=== PATIENT | female | born 1950 | race Caucasian/White ===

== ENCOUNTER 2018-04-08 09:43 | Emergency (ER) | payer SELFPAY ==
[2018-04-08] MEDS ORDERED: Sodium Chloride 0.9% 500 ML IV STA (10:27)
[2018-04-08 10:29] VITALS: PULSE 70
[2018-04-08 10:59] LABS: BASO % 0.7 % (0.0-2.0); EOS # 0.3 K/uL (0.0-0.7); EOS % 4.6 % (0.0-4.0); HEMOGLOBIN 12.7 g/dL (12.0-16.0); LYMPH # 1.4 K/uL (1.0-4.3); LYMPH % 23.8 % (20.0-40.0); MEAN CELL VOLUME 93.3 fl (81.0-99.0); MEAN CORPUSCULAR HEMOGLOBIN 32.5 pg (27.0-31.0); MEAN CORPUSCULAR HGB CONC 34.8 g/dL (33.0-37.0); MEAN PLATELET VOLUME 7.8 fl (7.2-11.7); MONO # 0.5 K/uL (0.0-0.8); MONO % 8.7 % (0.0-10.0); NEUT # 3.6 K/uL (1.8-7.0); NEUT % 62.2 % (50.0-75.0); NRBC % 0.1 % (0.0-0.0); RBC 3.92 Mil/uL (3.80-5.20); RED CELL DISTRIBUTION WIDTH 12.8 % (11.5-14.5); WHITE BLOOD COUNT 5.8 K/uL (4.8-10.8)
--- NOTE | 2018-04-08 11:00 | RAD ---
Date of service: 04/08/2018 HISTORY: dyspnea COMPARISON: No prior. FINDINGS: LUNGS: No active pulmonary disease. PLEURA: No significant pleural effusion identified, no pneumothorax apparent. CARDIOVASCULAR: Normal. OSSEOUS STRUCTURES: Degenerative changes. VISUALIZED UPPER ABDOMEN: Normal. OTHER FINDINGS: None. IMPRESSION: No active disease.
[2018-04-08 11:04] LABS: PROTHROMBIN TIME 10.8 Seconds (9.8-13.1)
[2018-04-08 11:07] LABS: PARTIAL THROMBOPLASTIN TIME 26.9 Seconds (25.6-37.1)
[2018-04-08 11:13] LABS: ALB/GLOB RATIO 1.2 (1.0-2.1); ALBUMIN 4.2 g/dL (3.5-5.0); ALT/SGPT 24 U/L (9-52); AST/SGOT 28 U/L (14-36); BLOOD UREA NITROGEN 12 mg/dl (7-17); CALCIUM 9.5 mg/dL (8.4-10.2); GFR NON-AFRICAN AMERICAN > 60
--- NOTE | 2018-04-08 11:21 | ED PDOC ---
HPI: Chest Pain Time Seen by Provider: 04/08/18 09:56 Chief Complaint (Nursing): Chest Pain Chief Complaint (Provider): Chest pain History Per: Patient History/Exam Limitations: no limitations Onset/Duration Of Symptoms: Days (x5), Intermittent Episodes Additional Complaint(s): Arleen Garcia is a 67 year old female, with a past medical history of cardiac arrhythmia, HTN and hypothyroidism, who presents to the emergency department for evaluation of a left sided nonradiating chest pain onset for x5 days. Patient reports an intermittent chest pain with exertion and associated with shortness o f breath. She is also complaining of a headache but denies any fever, chills, leg swelling, vision changes, numbness or tingling, weakness, nausea, vomit, diarrhea, abdominal pain, or dizziness. No further medical complaints. Headache is mild and not worst in her life. [place]. PMD: [place] of [place]. Past Medical History Reviewed: Historical Data, Nursing Documentation, Vital Signs Vital Signs: Last Vital Signs Temp 97 F L 04/08/18 09:55 Pulse 70 04/08/18 10:11 Resp 18 04/08/18 09:55 BP 129/76 04/08/18 09:55 Pulse Ox 95 04/08/18 09:55 - Medical History PMH: Cardia Arrhythmia, HTN, Hypothyroidism - Surgical History Surgical History: No Surg Hx - Family History Family History: States: Unknown Family Hx - Living Arrangements Living Arrangements: With Family - Allergies Allergies/Adverse Reactions: Allergies Allergy/AdvReac Type Severity Reaction Status Date / Time No Known Allergies Allergy Verified 04/08/18 10:27 Review of Systems ROS Statement: Except As Marked, All Systems Reviewed And Found Negative Constitutional: Negative for: Fever, Chills Eyes: Negative for: Vision Change Cardiovascular: Positive for: Chest Pain. Negative for: Edema Respiratory: Positive for: Shortness of Breath Gastrointestinal: Negative for: Nausea, Vomiting, Abdominal Pain, Diarrhea Neurological: Positive for: Headache. Negative for: Weakness, Numbness (tingling), Dizziness Physical Exam - Reviewed Nursing Documentation Reviewed: Yes Vital Signs Reviewed: Yes - Physical Exam Appears: Positive for: No Acute Distress Head Exam: Positive for: ATRAUMATIC, NORMOCEPHALIC Skin: Positive for: Normal Color, Warm, Dry Eye Exam: Positive for: Normal appearance, EOMI, PERRL ENT: Positive for: Normal ENT Inspection. Negative for: Nasal Congestion Neck: Positive for: Painless ROM, Supple Cardiovascular/Chest: Positive for: Regular Rate, Rhythm. Negative for: Murmur Respiratory: Positive for: Normal Breath Sounds. Negative for: Respiratory D istress Gastrointestinal/Abdominal: Positive for: Normal Exam, Soft. Negative for: Tenderness Back: Positive for: Normal Inspection. Negative for: L CVA Tenderness, R CVA Tenderness, Vertebral Tenderness Extremity: Positive for: Normal ROM (upper and lower extremities). Negative for: Tenderness, Calf Tenderness, Deformity, Swelling Neurologic/Psych: Positive for: Alert, Oriented. Negative for: Motor/Sensory Deficits - Laboratory Results Result Diagrams: 04/08/18 10:50 04/08/18 10:50 Interpretation Of Abn Labs: no acute - ECG ECG: Positive for: Interpreted By Me, Viewed By Me ECG Rhythm: Positive for: Sinus Rhythm Interpretation Of Abn EKG: incomplete RBBB O2 Sat by Pulse Oximetry: 95 (RA) Pulse Ox Interpretation: Normal - Radiology X-Ray: Read By Radiologist X-Ray Interpretation: No Acute Disease - Progress ED Course And Treament: 1222: Stable. AAOx3. Pain free. Pt. and son discussed options. Pt. refusing to stay in the hospital for further evaluation and treatment. Aware of possible or decreased functioning from chest pain and other etiologies causing her symptoms. Pt. has capacity to make decisions. Ambulated with no issues. Medical Decision Making Medical Decision Making: Time: 09:56 Initial Impression: Chest pain Initial Plan: --EKG --CMP --B-Type Natriuretic Peptide --Troponin I --D Dimer --PTT --PT --Aspirin 325 mg PO --Sodium Chloride 500 ml IV 100 mls/hr --Reevaluation Scribe Attestation: Documented by Kyrie Brooks, acting as a scribe for Henry Rojas MD. Provider Scribe Attestation: All medical record entries made by the Scribe were at my direction and personal ly dictated by me. I have reviewed the chart and agree that the record accurately reflects my personal performance of the history, physical exam, medical decision making, and the department course for this patient. I have also personally directed, reviewed, and agree with the discharge instructions and disposition. Disposition - Clinical Impression Clinical Impression: Chest pain - Patient ED Disposition Is Patient to be Admitted: No Counseled Patient/Family Regarding: Studies Performed, Diagnosis - Disposition Referrals: [facility] [Outside] - 04/08/18 Disposition: Against Medical Advice Disposition Time: 12:24 Condition: STABLE Additional Instructions: You are going against medical advice. You are aware of possible or decreased functioning from chest pain and related issues. We recommend you to stay in the hospital for further evaluation and treatment. You have chosen not to. Return soon as possible for further evaluation and treatment. Instructions: Chest Pain
[2018-04-08 11:23] LABS: B-TYPE NATRIURETIC PEPTIDE 151 pg/ml (0-900)
[2018-04-08 12:42] VITALS: BP 130/70; RESP 20; TEMP 98; O2SAT 98
--- NOTE | 2018-04-08 14:33 | CARD ---
APPROVED REPORT Date of service: 04/08/2018 EKG Measurement Heart [id number] MD [id number] <Conclusion> Sinus rhythm with premature atrial complexes in a pattern of bigeminy Incomplete right bundle branch block Borderline ECG
== END 2018-04-08 12:42 | disposition home or self-care (01) ==
LOC: H.ER 09:43
DX: R07.89 Other chest pain (principal); I10 Essential (primary) hypertension; E03.9 Hypothyroidism, unspecified
CPT/HCPCS: 71045; 80053; 83880; 84484; 85025; 85378; 85610; 85730; 93005; 99283; J7040